=== PATIENT | female | born 1950 | race Caucasian/White ===

== ENCOUNTER → 2016-10-26 07:02 | Emergency (ER) | payer MEDICARE, OTHER ==
[2016-10-26 07:17] VITALS: BP 118/66
--- NOTE | 2016-10-26 17:37 | ED ---
Julio Torres Billy, scribed for Florentino Montelongo MD on 10/26/16 at 0818 . Complex/Multi-Sys Presentation - HPI Summary HPI Summary: Patient is a 66 year-old female coming to [facility] for evaluation of an injury to her right eye. The sclera is a dark red color. She first noticed the change at 0615 this morning after rubbing the eye. However, she denies any recent falls or trauma, or any known foreign bodies or trauma to the eye. She does not take aspirin or bloodthinners. Denies any recent strenuous activity. She has noticed some blurred vision from the right eye but denies any visual field loss. She has a history of myopia and wears eyeglasses. She denies any significant pain to the eye and only reports a "muscle spasming" sensation of the muscles around the right eye, which she notices especially when she blinks. She has no other complaints today. - History Of Current Complaint Chief Complaint: EDEyeProblem Time Seen by Provider: 10/26/16 08:08 Hx Obtained From: Patient Onset/Duration: Sudden Onset, Lasting Hours, Still Present Timing: Constant Severity Currently: Moderate Severity Initially: Moderate Location: Pain At: - right eye Aggravating Factor(s): blinking Associated Signs And Symptoms: Negative: Fever PMH/Surg Hx/FS Hx/Imm Hx Endocrine/Hematology History: Reports: Hx Diabetes Sensory History: Reports: Hx Contacts or Glasses Opthamlomology History: Reports: Hx Contacts or Glasses Infectious Disease History: No Infectious Disease History: Denies: Traveled Outside the [place] in Last 30 Days - Family History Known Family History: Positive: Hypertension - Social History Alcohol Use: Occasionally Substance Use Type: Reports: None Smoking Status (MU): Never Smoked Tobacco Review of Systems Negative: Fever, Chills Positive: Blurred Vision All Other Systems Reviewed And Are Negative: Yes Physical Exam - Summary Physical Exam Summary: The patient is well-nourished in no acute distress and in no acute pain. The skin is warm and dry and skin color reflects adequate perfusion. HEENT: The head is normocephalic and atraumatic. The pupils are equal and reactive. EOMI. There is no trauma noted around the orbit of the eye. No foreign bodies visualized. The anterior chamber of the right eye is clear. There is a large conjunctival hemorrhage noted, sparing the upper medial aspect of the conjunctiva. There is no increased uptake of the fluorescein dye noted. Nares are patent and without drainage. Mouth reveals moist mucous membranes and the throat is without erythema and exudate. The external ears are intact. Neck is supple with full range of motion and non-tender. There are no carotid bruits. There is no neck vein distension. Respiratory: Chest is non-tender. Lungs are clear to auscultation and breath sounds are symmetrical and equal. Cardiovascular: Heart is regular rate and rhythm. There is no murmur or rub auscultated. There is no peripheral edema and pulses are symmetrical and equal. Abdomen: The abdomen is soft and non-tender. There are normal bowel sounds heard in all four quadrants and there is no organomegaly palpated. Musculoskeletal: There is no back pain noted. Extremities are non-tender with full range of motion. There is good capillary refill. There is no peripheral edema or calf tenderness elicited. Neurological: Patient is alert and oriented to person, place and time. The patient has symmetrical motor strength in all four extremities. Cranial nerves are grossly intact. Deep tendon reflexes are symmetrical and equal in all four extremities. Psychiatric: The patient has an appropriate affect and does not exhibit any anxiety or depression. Triage Information Reviewed: Yes Vital Signs On Initial Exam: Initial Vitals Temp Pulse Resp BP Pulse Ox 97.8 F 62 18 118/66 97 10/26/16 07:09 10/26/16 07:09 10/26/16 07:09 10/26/16 07:09 10/26/16 07:09 Vital Signs Reviewed: Yes - [place] Coma Scale Coma Scale Total: 15 Diagnostics - Vital Signs Vital Signs Temp Pulse Resp BP Pulse Ox 10/26/16 07:11 97.8 F 62 18 118/66 97 10/26/16 07:09 97.8 F 62 18 118/66 97 - Laboratory Lab Statement: Any lab studies that have been ordered have been reviewed, and results considered in the medical decision making process. Re-Evaluation - Re-Evaluation First Eval Re-Evaluation Time: 09:15 Complex Multi-Symp Course/Dx Assessment/Plan: This is a 66 year-old female coming to [facility] for evaluation of a right conjunctival hemorrhage. On physical exam, the pupils are equal and reactive. EOMI. There is no trauma noted around the orbit of the eye. No foreign bodies visualized. The anterior chamber of the right eye is clear. There is a large conjunctival hemorrhage noted, sparing the upper medial aspect of the conjunctiva. There is no increased uptake of the fluorescein dye noted. The case was discussed with opthalmology, who agree to see the patient in their office at 1100 today. She was discharged home to see Dr. Akash Kemp. Since she is from [place] and unfamiliar with the area, she was given driving instructions to Dr. Kemp's office as well as his office phone number. - Diagnoses Provider Diagnoses: Conjunctival hemorrhage Discharge - Discharge Plan Condition: Stable Disposition: HOME Patient Education Materials: Subconjunctival Hemorrhage (ED) Referrals: Akash Kemp MD [Medical Doctor] - Additional Instructions: FOLLOW UP WITH DR. AKASH KEMP AT 11:00AM TODAY. ADDRESS: [address] [place] [address] [address], [place] [id number] EXIT FROM THE HOSPITAL PARKING LOT AND MAKE A LEFT ONTO [facility]. CONTINUE ON [facility]. TAKE [facility] TO [facility] IN [place]. TAKE THE [facility] EXIT FROM [facility]. TURN LEFT ONTO [facility]. DRIVE FOR ABOUT ONE MINUTE. THE OFFICE WILL BE ON YOUR RIGHT. The documentation as recorded by the scribeJulio Billy accurately reflects the service I personally performed and the decisions made by , Florentino Montelongo MD.
== END | disposition home or self-care (01) ==
LOC: ED 07:02
DX: H11.31 Conjunctival hemorrhage, right eye (principal); H53.8 Other visual disturbances
CPT/HCPCS: 99282